=== PATIENT | female | born 1995 | race Two or more races ===

== ENCOUNTER 2020-09-28 23:16 | Emergency (ER) | payer SELFPAY ==
[2020-09-28] MEDS ORDERED: Morphine 4 MG/ML Syringe IVPUSH ONE (23:31)
[2020-09-28] MEDS ORDERED: Lactated Ringers 1,000 ML IV ONE (23:31)
[2020-09-28] MEDS ORDERED: Ondansetron 4 MG/2 ML SDV IVPUSH ONE (23:53)
[2020-09-28] MEDS ORDERED: Ondansetron 4 MG/2 ML SDV ONE (23:54)
[2020-09-29 00:23] LABS: BLOOD UREA NITROGEN,BUN 14 mg/dL (7.0-18.0); CARBON DIOXIDE,CO2 21.5 mmol/L (21.0-32.0); CHLORIDE,CL 101 mmol/L (98-107); GLUCOSE RANDOM 97 mg/dL (74-106); POTASSIUM,K 3.7 mmol/L (3.5-5.1); SODIUM,NA 135 mmol/L (136-145)
[2020-09-29] MEDS ORDERED: Cephalexin 250 MG Cap PO ONE (03:12)
--- NOTE | 2020-09-29 04:24 | US ---
INDICATION: , pain, eval for IUP, LMP 08/09/2020 COMPARISON: None TECHNIQUE: Multiple grayscale sonographic images of the pelvis. Scanning was performed transvaginally. FINDINGS: The uterus measures 0.9 x 4.3 x 6.3 cm. Intrauterine gestational sac is demonstrated with a mean sac diameter of 10 mm and a 4 mm yolk sac. pole measures 2 mm, corresponding to approximate gestational age of 5 weeks, 5 days. heart tones are not appreciated. Small pocket of endometrial free fluid in the lower uterine segment is nonspecific. The right ovary measures 4.4 x 1 1.9 x 3.2 cm and contains a 1.9 cm thick-walled cystic structure consistent with a corpus luteum. The left ovary measures 3.4 x 1.5 x 3.3 cm and appears unremarkable. Intact vascular flow is demonstrated to both ovaries by spectral Doppler. There is no significant pelvic free fluid. IMPRESSION: A single intrauterine with approximate age of 5 weeks, 5 days. heart tones are not demonstrated, presumably due to small size. Correlate with serial serum beta HCG levels and follow-up ultrasound. Dictated by Nahid Phoenix MD @ Sep 29 2020 4:13AM Signed by Dr. Nahid Phoenix @ Sep 29 2020 4:22AM
--- NOTE | 2020-09-29 04:32 | EDM.PDOC ---
ED HPI GENERAL MEDICAL PROBLEM - General Chief Complaint: Flank Pain Stated Complaint: KIDNEY PAIN Time Seen by Provider: 09/28/20 23:17 - History of Present Illness INITIAL COMMENTS - FREE TEXT/NARRATIVE: *All discussions with patient were had with desktop support engineer given patient speaks kyrgyz. CHIEF COMPLAINT(S): Left-sided abdominal pain HISTORY OF PRESENT ILLNESS: This is a 33-year-old woman with a past medical hist ory of nephrolithiasis and polycystic ovarian syndrome who comes to the emergency department with a chief complaint of left-sided abdominal pain. The patient states that starting earlier this evening she started to experience left-sided. She describes the pain as crampy and sharp with radiation to her groin. She describes the pain as 9 out of 10 with associated dysuria. She denies any hematuria, vaginal bleeding or vaginal discharge. She denies any fevers or chills but states that she is mildly nauseous. She denies any vomiting. She has not yet tried anything for pain medication. She does not know what exacerbates the pain. She states that it did start suddenly. She states that it does feel similar to the last time she had kidney stone which was approximately 5 years ago. She states that her last menstrual period was 2 months ago and that her period is not regular secondary to PCOS. She denies any melena or hematochezia. She denies any other symptoms. REVIEW OF SYSTEMS: Constitutional: Denies fever, chills. Eyes: Denies eye pain Ears, Nose, Mouth, & Throat: Denies earache Cardiovascular: Denies chest pain Respiratory: Denies shortness of breath Gastrointestinal: Positive for left-sided abdominal pain, nausea. Denies vomiting, diarrhea, hematochezia, melena, hematemesis, bilious emesis Genitourinary: Positive for dysuria and left flank pain. Denies hematuria, vaginal bleeding, vaginal discharge Skin:Denies a rash MSK: Denies joint pain Neurological: Denies blurred vision, numbness, tingling Psychiatric: Denies depression PAST MEDICAL HISTORY: As per history of present illness and as reviewed below otherwise noncontributory. SURGICAL HISTORY: As per history of present illness and as reviewed below otherwise noncontributory. LMP: 2 months ago, patient has irregular periods SOCIAL HISTORY: As per history of present illness and as reviewed below otherwise noncontributory. FAMILY HISTORY: As per history of present illness and as reviewed below ot herwise noncontributory. EXAMINATION OF ORGAN SYSTEMS/BODY AREAS: Constitutional: Blood pressure is 131/94, heart rate 88, respiratory rate 16 with an oxygen saturation 98% on room air. Temperature 36.5 General: Young woman who appears to be in a moderate amount of pain holding the left side of her abdomen. Psychiatric: Appropriate mood and affect. Eyes: No scleral icterus or conjunctival erythema ENMT: Moist mucous membranes. No pharyngeal erythema Cardiovascular: Regular, rate, and rhythm. No gallops, murmurs, or rubs. Bilateral upper extremity pulses symmetric and intact. No peripheral edema. No JVD. Respiratory: Lungs clear to auscultation bilaterally. No wheezes, rales, or rhonchi. Gastrointestinal: Soft, non-tender, non-distended. Normoactive bowel sounds no rebound or guarding. Genitourinary: There is suprapubic tenderness to palpation and mild left CVA tenderness. No right CVA tenderness Musculoskeletal: Normal range of motion. Skin: No lesions or abrasions. Neurological: Alert, GCS 15 MEDICAL DECISION MAKING AND COURSE IN THE ED WITH INTERPRETATION/REVIEW OF DIAGNOSTIC STUDIES: This is a 33-year-old 1 with a past medical history of PCOS and nephrolithiasis who comes to the emergency department with acute onset left flank pain with radiation to her groin associated with dysuria who has stable vital signs and appears to be in moderate amount of pain. At this time I am concerned about the possibility of nephrolithiasis. Differential does include pyelonephritis or cystitis. Given the patient did not have a period for 2 months we will obtain a [id number] test. We will obtain CBC, BMP, urinalysis, and CT abdomen pelvis without contrast. We will provide the patient with morphine for pain relief The patient was unable to pee therefore we will obtain a serum hCG. Laboratory: CBC is unremarkable. CMP reveals hyponatremia at 135, hypocalcemia at 7.9+ hCG. Given the patient does have a positive hCG I am concerned about the possibility of ectopic versus ruptured ectopic. At this time I did perform a bedside transabdominal ultrasound I discussed with the patient that she is in fact . Bedside transabdominal OB ultrasound Bedside ultrasound reveals gestational sac without any yolk sac without any free fluid. Given I could not confirm intrauterine on bedside we will obtain a formal transvaginal ultrasound. I did discuss with the patient that we were unable to obtain a CT given that the patient is . We will obtain bilateral renal ultrasound to evaluate for hydronephrosis. We will also obtain a quantitative hCG. : Laboratory: Quantitative hCG was elevated at 8498. Urinalysis was a clean catch and was positive for leukocyte esterase, negative for nitrites, and trace for blood. Dirty catch with 3+ bacteria interpretation: Positive Given the patient is I did provide the patient with Keflex by mouth for bacteriuria and suggestion of urinary tract infection. The radiological images were viewed by myself along with reading the report from the radiologist. OB transvaginal ultrasound reveals a intrauterine without any tones at approximately 5 weeks and 5 days. Retroperitoneal ultrasound does not reveal any evidence of hydronephrosis or nephrolithiasis. After imaging the patient reported significant improvement in her pain. At this time I did discuss with her the results of her ultrasounds. I did discuss with her that it could be early and discussed that there was no heart rate on ultrasound. I discussed that she needed a repeat hCG in 2 days and provided her with a prescription to have that completed. I discussed that she need to follow-up with obstetrics within 2 to 3 days for evaluation and plan for repeat ultrasound. She is to return for any new or worsening symptoms. She was amenable to discharge at this time and had no further questions DISPOSITION: The patient was discharged home in stable condition. The patient w ill follow up with obstetrics within 2 to 3 days CONDITION: Fair PROCEDURES: Bedside transabdominal OB ultrasound FINAL IMPRESSION(S)/DIAGNOSES: 1. Acute pelvic pain likely secondary to cystitis 2. Acute new Kurt Velásquez M.D. left flank Pain Score (Numeric/FACES): 9 - Related Data Allergies Allergy/AdvReac Type Severity Reaction Status Date / Time No Known Allergies Allergy Verified 09/28/20 23:29 Home Meds: Home Meds cephALEXin [Keflex] 250 mg PO BID #10 cap 09/29/20 [Rx] Past Medical History - Past Health History Medical/Surgical History: Denies Medical/Surgical History Social & Family History - Tobacco Use Tobacco Use Status *Q: Current Every Day Tobacco User Years of Tobacco use: 10 Packs/Tins Daily: 0 - Recreational Drug Use Recreational Drug Use: No ED ROS GENERAL - Review of Systems Review Of Systems: See Below ED EXAM, GENERAL - Physical Exam Exam: See Below Course - Vital Signs Last Recorded V/S: Last Vital Signs Temp 36.0 C L 09/29/20 04:52 Pulse 64 09/29/20 04:52 Resp 18 09/29/20 04:52 BP 120/86 09/29/20 04:52 Pulse Ox 98 09/29/20 04:52 - Orders/Labs/Meds Orders: Active Orders 24 hr Category Date Time Status CULTURE URINE [RM] Stat Lab 09/29/20 02:31 Received Labs: Laboratory Tests 09/28/20 09/28/20 09/28/20 Range/Units 23:55 23:55 23:55 WBC 10.01 (4.0-11.0) K/uL RBC 4.59 (4.30-5.90) M/uL Hgb 13.3 (12.0-16.0) g/dL Hct 39.8 (36.0-46.0) % MCV 86.7 (80.0-98.0) fL MCH 29.0 (27.0-32.0) pg MCHC 33.4 (31.0-37.0) g/dL RDW Std Deviation 40.0 (28.0-62.0) fl RDW Coeff of Zee 13 (11.0-15.0) % Plt Count 268 (150-400) K/uL MPV 8.90 (7.40-12.00) fL Neut % (Auto) 68.7 (48.0-80.0) % Lymph % (Auto) 22.0 (16.0-40.0) % Whiteside % (Auto) 8.1 (0.0-15.0) % Eos % (Auto) 0.5 (0.0-7.0) % Baso % (Auto) 0.7 (0.0-1.5) % Neut # (Auto) 6.9 H (1.4-5.7) K/uL Lymph # (Auto) 2.2 (0.6-2.4) K/uL Whiteside # (Auto) 0.8 (0.0-0.8) K/uL Eos # (Auto) 0.1 (0.0-0.7) K/uL Baso # (Auto) 0.1 (0.0-0.1) K/uL Nucleated RBC % 0.0 /100WBC Nucleated RBCs # 0 K/uL Sodium 135 L (136-145) mmol/L Potassium 3.7 (3.5-5.1) mmol/L Chloride 101 (98-107) mmol/L Carbon Dioxide 21.5 (21.0-32.0) mmol/L BUN 14 (7.0-18.0) mg/dL Creatinine 0.8 (0.6-1.0) mg/dL Est Cr Clr Drug Dosing 75.87 mL/min Estimated GFR (MDRD) > 60.0 ml/min Glucose 97 (74-106) mg/dL Calcium 7.9 L (8.5-10.1) mg/dL Total Bilirubin 0.4 (0.2-1.0) mg/dL AST 13 L (15-37) IU/L ALT 19 (14-63) IU/L Alkaline Phosphatase 67 (46-116) U/L Total Protein 7.6 (6.4-8.2) g/dL Albumin 3.9 (3.4-5.0) g/dL Globulin 3.7 (2.6-4.0) g/dL Albumin/Globulin Ratio 1.1 (0.9-1.6) HCG, Qual POSITIVE H (NEG) HCG, Quant mIU/mL Urine Color Urine Appearance Urine pH (5.0-8.0) Ur Specific [place] (1.001-1.035) Urine Protein (NEGATIVE) mg/dL Urine Glucose (UA) (NEGATIVE) mg/dL Urine Ketones (NEGATIVE) mg/dL Urine Occult Blood (NEGATIVE) Urine Nitrite (NEGATIVE) Urine Bilirubin (NEGATIVE) Urine Urobilinogen (<2.0) EU/dL Ur Leukocyte Esterase (NEGATIVE) Urine RBC (0-2/HPF) Urine WBC (0-5/HPF) Ur Epithelial Cells (NONE-FEW) Urine Bacteria (NEGATIVE) Urine Mucus (NONE-MOD) 09/28/20 09/29/20 Range/Units 23:55 02:31 WBC (4.0-11.0) K/uL RBC (4.30-5.90) M/uL Hgb (12.0-16.0) g/dL Hct (36.0-46.0) % MCV (80.0-98.0) fL MCH (27.0-32.0) pg MCHC (31.0-37.0) g/dL RDW Std Deviation (28.0-62.0) fl RDW Coeff of Zee (11.0-15.0) % Plt Count (150-400) K/uL MPV (7.40-12.00) fL Neut % (Auto) (48.0-80.0) % Lymph % (Auto) (16.0-40.0) % Whiteside % (Auto) (0.0-15.0) % Eos % (Auto) (0.0-7.0) % Baso % (Auto) (0.0-1.5) % Neut # (Auto) (1.4-5.7) K/uL Lymph # (Auto) (0.6-2.4) K/uL Whiteside # (Auto) (0.0-0.8) K/uL Eos # (Auto) (0.0-0.7) K/uL Baso # (Auto) (0.0-0.1) K/uL Nucleated RBC % /100WBC Nucleated RBCs # K/uL Sodium (136-145) mmol/L Potassium (3.5-5.1) mmol/L Chloride (98-107) mmol/L Carbon Dioxide (21.0-32.0) mmol/L BUN (7.0-18.0) mg/dL Creatinine (0.6-1.0) mg/dL Est Cr Clr Drug Dosing mL/min Estimated GFR (MDRD) ml/min Glucose (74-106) mg/dL Calcium (8.5-10.1) mg/dL Total Bilirubin (0.2-1.0) mg/dL AST (15-37) IU/L ALT (14-63) IU/L Alkaline Phosphatase (46-116) U/L Total Protein (6.4-8.2) g/dL Albumin (3.4-5.0) g/dL Globulin (2.6-4.0) g/dL Albumin/Globulin Ratio (0.9-1.6) HCG, Qual (NEG) HCG, Quant 8498.0 mIU/mL Urine Color YELLOW Urine Appearance CLOUDY Urine pH 6.0 (5.0-8.0) Ur Specific [place] 1.010 (1.001-1.035) Urine Protein NEGATIVE (NEGATIVE) mg/dL Urine Glucose (UA) NEGATIVE (NEGATIVE) mg/dL Urine Ketones NEGATIVE (NEGATIVE) mg/dL Urine Occult Blood TRACE-INTACT H (NEGATIVE) Urine Nitrite NEGATIVE (NEGATIVE) Urine Bilirubin NEGATIVE (NEGATIVE) Urine Urobilinogen 0.2 (<2.0) EU/dL Ur Leukocyte Esterase LARGE H (NEGATIVE) Urine RBC 1-3 (0-2/HPF) Urine WBC TO NUMEROUS TO COUNT H (0-5/HPF) Ur Epithelial Cells MANY (NONE-FEW) Urine Bacteria 3+ H (NEGATIVE) Urine Mucus LIGHT (NONE-MOD) Meds: Medications Discontinued Medications Generic Name Dose Route Start Last Admin Trade Name Freq PRN Reason Stop Dose Admin Cephalexin 250 mg 09/29/20 03:12 09/29/20 04:05 Cephalexin 250 Mg Cap PO 09/29/20 03:13 250 mg ONETIME ONE Administration Lactated Ringer's 1,000 mls @ 999 mls/hr 09/28/20 23:31 09/28/20 23:53 Ringers, Lactated IV 09/29/20 00:31 999 mls/hr .BOLUS ONE Administration Morphine Sulfate 4 mg 09/28/20 23:31 09/28/20 23:50 Morphine 4 Mg/Ml Syringe IVPUSH 09/28/20 23:32 4 mg ONETIME ONE Administration Ondansetron HCl 4 mg 09/28/20 23:53 09/28/20 23:54 Ondansetron 4 Mg/2 Ml Sdv IVPUSH 09/28/20 23:54 4 mg ONETIME ONE Administration Ondansetron HCl Confirm 09/28/20 23:54 09/28/20 23:58 Ondansetron 4 Mg/2 Ml Sdv Administered 09/28/20 23:55 Not Given Dose 4 mg .ROUTE .STK-MED ONE Departure - Departure Time of Disposition: 05:00 Disposition: Home, Self-Care 01 Condition: Fair Clinical Impression: UTI, Urinary tract infectious disease - Discharge Information *PRESCRIPTION DRUG MONITORING PROGRAM REVIEWED*: No *COPY OF PRESCRIPTION DRUG MONITORING REPORT IN PATIENT JIMI: No Prescriptions: cephALEXin [Keflex] 250 mg PO BID #10 cap Instructions: First Trimester of , [id number], Transvaginal Ultrasound, Cephalexin Tablets or Capsules, and Smoking Referrals: PCP,None [Primary Care Provider] - Forms: ED Department Discharge Additional Instructions: [place] fuiste evaluado de forma emergente. En filipe momento le diagnosticaron un embarazo. Aaron se christy comentado, la ecografa le lleva aproximadamente 5 semanas y 5 macias y no hay frecuencia cardaca en la ecografa. [place] podra deberse a que se encuentra en daya etapa temprana del embarazo; sin embargo, es necesario repetir las pruebas de laboratorio en 2 macias y tambin se necesita un seguimiento por ultrasonido con un obstetra. Adems, le diagnosticaron daya infeccin del tracto urinario y le enviaron antibiticos a la farmacia. Complete la dosis completa. Te recomiendo que comiences con daya vitamina . Tommy un seguimiento con el obstetra en 2 macias para repetir la hCG; de lo contrario, regrese al departamento de emergencias para filipe laboratorio. [facility] [address] [place] [id number] [facility] [address] [place] [id number] Se informa al paciente de los resultados de church evaluacin y diagnstico y se responden todas las preguntas. Se les alexia instrucciones de kamar y precauciones de devolucin. El paciente est estable para el kamar. El paciente afirma que entiende y est de acuerdo con el plan y que volver si sunday sntomas empeoran o si tiene alguna inquietud nueva. La siguiente informacin se markos a los pacientes atendidos en el departamento de emergencias que estn siendo dados de kamar a church hogar. Esta informacin es para describir sunday opciones para la atencin de seguimiento. Proporcionamos a todos los pacientes atendidos en nuestro departamento de emergencias daya derivacin de seguimiento. La necesidad de seguimiento, as aaron el momento y las circunstancias, varan segn los detalles de church visita al departamento de emergencias. Si no tiene un mdico de atencin primaria en el personal, le proporcionaremos daya referencia. Siempre le recomendamos que se ponga en contacto con church mdico personal despus de daya visita al servicio de urgencias para informarle de las circunstancias de la visita y para realizar un seguimiento con l y / o la necesidad de cualquier derivacin a un especialista consultor. El departamento de emergencias tambin lo derivar a un especialista cuando sea apropiado. Esta remisin le asegura que tiene la oportunidad de recibir atencin de seguimiento con un especialista. Todas estas medidas se janeth en un esfuerzo por brindarle daya atencin ptima, que incluye church seguimiento. En todas las circunstancias, siempre lo alentamos a que se comunique con church mdico privado, quien sigue siendo un recurso para coordinar church atencin. Cuando llame para recibir atencin de seguimiento, informe al consultorio que filipe seguimiento es de church visita reciente a la abdi de emergencias. Si por alguna razn se le niega el seguimiento, comunquese con el Departamento de Emergencias del [facility] al y solicite hablar con la enfermera a cargo del departamento de emergencias. Sepsis Event Note (ED) - Evaluation Sepsis Screening Result: No Definite Risk - Focused Exam Vital Signs: Vital Signs Temp Pulse Resp BP Pulse Ox 09/29/20 04:52 36.0 C L 64 18 120/86 98 09/29/20 01:02 73 113/80 97 09/29/20 00:47 77 125/89 97 09/29/20 00:32 101 H 133/88 96 09/29/20 00:17 73 129/90 99 09/28/20 23:25 36.5 C 88 16 131/94 H 98 - My Orders Last 24 Hours: My Active Orders 09/29/20 02:31 CULTURE URINE [RM] Stat - Assessment/Plan Last 24 Hours: My Active Orders 09/29/20 02:31 CULTURE URINE [RM] Stat
--- NOTE | 2020-09-29 04:46 | US ---
Indication: Left flank pain Technique: Multiple grayscale and color Doppler sonographic images of the kidneys and urinary bladder. Comparison: None Findings: The right kidney measures 11.2 x 6.0 x 4.6 cm. The left kidney measures 11.0 x 5.9 x 6.5. Both kidneys demonstrate normal cortical thickness and parenchymal echotexture, without suspicious lesion. No stones are seen either kidney. There is no hydronephrosis. Impression: Unremarkable kidneys. No stones or hydronephrosis. Dictated by Nahid Phoenix MD @ Sep 29 2020 4:43AM Signed by Dr. Nahid Phoenix @ Sep 29 2020 4:45AM
== END 2020-09-29 05:00 | disposition home or self-care (01) ==
LOC: MW.ED 23:16
DX: O23.41 Unspecified infection of urinary tract in pregnancy, first trimester (principal); Z72.0 Tobacco use; Z3A.01 Less than 8 weeks gestation of pregnancy
CPT/HCPCS: 36415; 76775; 76817; 80053; 81001; 84702; 84703; 85025; 87086; 96374; 96375; 99284; A9270; J2270; J2405; J7120

== ENCOUNTER 2020-10-13 09:07 | Emergency (ER) | payer SELFPAY ==
--- NOTE | 2020-10-13 09:37 | EDM.PDOC ---
ED HPI GENERAL MEDICAL PROBLEM - General Chief Complaint: [employer] SCOUT Problem Stated Complaint: 7WEEKS BLEEDING AND PAIN Time Seen by Provider: 10/13/20 09:19 Source of Information: Reports: Patient History Limitations: Reports: No Limitations - History of Present Illness INITIAL COMMENTS - FREE TEXT/NARRATIVE: Patient is a 25-year-old English-speaking female who presents today for vaginal bleeding and lower abdominal pain. Patient dates earlier today she started having bleeding was bleeding quite profusely but now is only using 1 pad for the past 2 hours. Patient says she saw some clots passed at home. Patient dates that she is about 7 or 8 weeks had ultrasound today she found she was . Patient denies any trauma fevers chills lightheadedness or weakness. Abdominal Pain Score (Numeric/FACES): 8 - Related Data Allergies Allergy/AdvReac Type Severity Reaction Status Date / Time No Known Allergies Allergy Verified 09/28/20 23:29 Home Meds: Home Meds No122/Iron/Folic Acid [ Multi Tablet] 10/13/20 [History] Past Medical History - Past Health History Medical/Surgical History: Denies Medical/Surgical History - Infectious Disease History Infectious Disease History: Reports: None Social & Family History - Family History Family Medical History: No Pertinent Family History - Caffeine Use Caffeine Use: Reports: None ED ROS GENERAL - Review of Systems Review Of Systems: See Below Constitutional: Reports: No Symptoms HEENT: Reports: No Symptoms Respiratory: Reports: No Symptoms Cardiovascular: Reports: No Symptoms Endocrine: Reports: No Symptoms GI/Abdominal: Reports: No Symptoms : Reports: Other (vaginal bleeding ) Musculoskeletal: Reports: No Symptoms Skin: Reports: No Symptoms Neurological: Reports: No Symptoms Psychiatric: Reports: No Symptoms Hematologic/Lymphatic: Reports: No Symptoms Immunologic: Reports: No Symptoms ED EXAM, GI/ABD - Physical Exam Exam: See Below Exam Limited By: No Limitations General Appearance: Alert, WD/WN Eyes: Bilateral: EOMI Head: Atraumatic, Normocephalic Respiratory/Chest: No Respiratory Distress, Lungs Clear, Normal Breath Sounds Cardiovascular: Normal Peripheral Pulses, Regular Rate, Rhythm, No Edema GI/Abdominal Exam: Normal Bowel Sounds, Soft, Non-Tender (Female) Exam: Normal Speculum Exam, Normal Bimanual Exam. No: Adnexal Mass, Cervical Dilatation Neurological: Alert, Oriented, CN II-XII Intact Course - Vital Signs Last Recorded V/S: Last Vital Signs Temp 97.3 F 10/13/20 09:19 Pulse 75 10/13/20 09:19 Resp BP 121/72 10/13/20 09:19 Pulse Ox 97 10/13/20 09:19 - Orders/Labs/Meds Orders: Active Orders 24 hr Category Date Time Status CHLAMYDIA AND GONORRHEA BY TMA Stat Lab 10/13/20 11:35 Received Labs: Laboratory Tests 10/13/20 10/13/20 10/13/20 Range/Units 10:03 10:03 10:03 WBC 10.97 (4.0-11.0) K/uL RBC 4.56 (4.30-5.90) M/uL Hgb 13.2 (12.0-16.0) g/dL Hct 38.6 (36.0-46.0) % MCV 84.6 (80.0-98.0) fL MCH 28.9 (27.0-32.0) pg MCHC 34.2 (31.0-37.0) g/dL RDW Std Deviation 36.9 (28.0-62.0) fl RDW Coeff of Zee 12 (11.0-15.0) % Plt Count 284 (150-400) K/uL MPV 8.60 (7.40-12.00) fL Neut % (Auto) 74.5 (48.0-80.0) % Lymph % (Auto) 17.7 (16.0-40.0) % Walker % (Auto) 7.2 (0.0-15.0) % Eos % (Auto) 0.2 (0.0-7.0) % Baso % (Auto) 0.4 (0.0-1.5) % Neut # (Auto) 8.2 H (1.4-5.7) K/uL Lymph # (Auto) 1.9 (0.6-2.4) K/uL Walker # (Auto) 0.8 (0.0-0.8) K/uL Eos # (Auto) 0.0 (0.0-0.7) K/uL Baso # (Auto) 0.0 (0.0-0.1) K/uL Sodium 137 (136-145) mmol/L Potassium 3.9 (3.5-5.1) mmol/L Chloride 104 (98-107) mmol/L Carbon Dioxide 24.7 (21.0-32.0) mmol/L BUN 9 (7.0-18.0) mg/dL Creatinine 0.6 (0.6-1.0) mg/dL Est Cr Clr Drug Dosing 101.16 mL/min Estimated GFR (MDRD) > 60.0 ml/min Glucose 98 (74-106) mg/dL Calcium 8.7 (8.5-10.1) mg/dL Total Bilirubin 0.4 (0.2-1.0) mg/dL AST 14 L (15-37) IU/L ALT 22 (14-63) IU/L Alkaline Phosphatase 68 (46-116) U/L Total Protein 7.7 (6.4-8.2) g/dL Albumin 3.8 (3.4-5.0) g/dL Globulin 3.9 (2.6-4.0) g/dL Albumin/Globulin Ratio 1.0 (0.9-1.6) HCG, Quant 85103.0 mIU/mL Urine Color Urine Appearance Urine pH (5.0-8.0) Ur Specific [place] (1.001-1.035) Urine Protein (NEGATIVE) mg/dL Urine Glucose (UA) (NEGATIVE) mg/dL Urine Ketones (NEGATIVE) mg/dL Urine Occult Blood (NEGATIVE) Urine Nitrite (NEGATIVE) Urine Bilirubin (NEGATIVE) Urine Urobilinogen (<2.0) EU/dL Ur Leukocyte Esterase (NEGATIVE) Urine RBC (0-2/HPF) Urine WBC (0-5/HPF) Ur Epithelial Cells (NONE-FEW) Amorphous Sediment (NEGATIVE) Urine Bacteria (NEGATIVE) Urine Mucus (NONE-MOD) Blood Type O POSITIVE 10/13/20 Range/Units 10:05 WBC (4.0-11.0) K/uL RBC (4.30-5.90) M/uL Hgb (12.0-16.0) g/dL Hct (36.0-46.0) % MCV (80.0-98.0) fL MCH (27.0-32.0) pg MCHC (31.0-37.0) g/dL RDW Std Deviation (28.0-62.0) fl RDW Coeff of Zee (11.0-15.0) % Plt Count (150-400) K/uL MPV (7.40-12.00) fL Neut % (Auto) (48.0-80.0) % Lymph % (Auto) (16.0-40.0) % Walker % (Auto) (0.0-15.0) % Eos % (Auto) (0.0-7.0) % Baso % (Auto) (0.0-1.5) % Neut # (Auto) (1.4-5.7) K/uL Lymph # (Auto) (0.6-2.4) K/uL Walker # (Auto) (0.0-0.8) K/uL Eos # (Auto) (0.0-0.7) K/uL Baso # (Auto) (0.0-0.1) K/uL Sodium (136-145) mmol/L Potassium (3.5-5.1) mmol/L Chloride (98-107) mmol/L Carbon Dioxide (21.0-32.0) mmol/L BUN (7.0-18.0) mg/dL Creatinine (0.6-1.0) mg/dL Est Cr Clr Drug Dosing mL/min Estimated GFR (MDRD) ml/min Glucose (74-106) mg/dL Calcium (8.5-10.1) mg/dL Total Bilirubin (0.2-1.0) mg/dL AST (15-37) IU/L ALT (14-63) IU/L Alkaline Phosphatase (46-116) U/L Total Protein (6.4-8.2) g/dL Albumin (3.4-5.0) g/dL Globulin (2.6-4.0) g/dL Albumin/Globulin Ratio (0.9-1.6) HCG, Quant mIU/mL Urine Color RED Urine Appearance CLOUDY Urine pH 7.0 (5.0-8.0) Ur Specific [place] 1.020 (1.001-1.035) Urine Protein 100 H (NEGATIVE) mg/dL Urine Glucose (UA) NEGATIVE (NEGATIVE) mg/dL Urine Ketones NEGATIVE (NEGATIVE) mg/dL Urine Occult Blood LARGE H (NEGATIVE) Urine Nitrite POSITIVE H (NEGATIVE) Urine Bilirubin NEGATIVE (NEGATIVE) Urine Urobilinogen 1.0 (<2.0) EU/dL Ur Leukocyte Esterase TRACE H (NEGATIVE) Urine RBC >100 H (0-2/HPF) Urine WBC 0-2 (0-5/HPF) Ur Epithelial Cells FEW (NONE-FEW) Amorphous Sediment LIGHT (NEGATIVE) Urine Bacteria FEW (NEGATIVE) Urine Mucus LIGHT (NONE-MOD) Blood Type Meds: Medications Discontinued Medications Generic Name Dose Route Start Last Admin Trade Name Bettie PRN Reason Stop Dose Admin Acetaminophen 650 mg 10/13/20 10:26 10/13/20 10:44 Acetaminophen 325 Mg Tab PO 10/13/20 10:27 650 mg NOW ONE Administration - Re-Assessments/Exams Free Text/Narrative Re-Assessment/Exam: 10/13/20 12:34 We used wildlife protector to speak the patient and let her know what was happening. Patient hemoglobin is stable. Patient ultrasound showed a IUP but is too early to show viability. Pelvic ultrasound showed cholelithiasis but with some blood. Patient bleeding has slowed down. Patient vitals have been stable. Patient will be discharged with [employer] follow-up. Departure - Departure Time of Disposition: 12:35 Disposition: Home, Self-Care 01 Condition: Good Clinical Impression: Hemorrhage, , early - Discharge Information *PRESCRIPTION DRUG MONITORING PROGRAM REVIEWED*: Not Applicable *COPY OF PRESCRIPTION DRUG MONITORING REPORT IN PATIENT JIMI: Not Applicable Instructions: Vaginal Bleeding During , First Trimester, [id number] Referrals: PCP,None [Primary Care Provider] - Forms: ED Department Discharge Additional Instructions: The following information is given to patients seen in the emergency department who are being discharged to home. This information is to outline your options for follow-up care. We provide all patients seen in our emergency department with a follow-up referral. The need for follow-up, as well as the timing and circumstances, are variable depending upon the specifics of your emergency department visit. If you don't have a primary care physician on staff, we will provide you with a referral. We always advise you to contact your personal physician following an emergency department visit to inform them of the circumstance of the visit and for follow-up with them and/or the need for any referrals to a consulting specialist. The emergency department will also refer you to a specialist when appropriate. This referral assures that you have the opportunity for follow-up care with a specialist. All of these measure are taken in an effort to provide you with optimal care, which includes your follow-up. Under all circumstances we always encourage you to contact your private physician who remains a resource for coordinating your care. When calling for follow-up care, please make the office aware that this follow-up is from your recent emergency room visit. If for any reason you are refused follow-up, please contact the [facility] Emergency Department at and asked to speak to the emergency department charge nurse. Please follow up with your primary care physician. If you do not have a primary care physician, see below: [facility] [address] [place] [id number] [facility] [address] [place] [id number] You were seen today for vaginal bleeding while . We did labs that showed a stable blood level. Ultrasound showed that the baby is in the right place but is still too early to show if is going to be a viable . We will like for you to monitor your stuff at home if you become weak or lightheaded please return to the ED. If you continue to have heavy bleeding also return to the ED. Please also follow-up with [employer] soon as possible. La atendieron hoy por sangrado vaginal mientras estaba embarazada. Hicimos pruebas de laboratorio que mostraron un nivel en michael estable. La ecografa mostr que el beb est en el lugar correcto, yariel an es demasiado pronto para mostrar si va a ser un embarazo viable. Nos gustara que controle sunday cosas en casa si se siente dbil o aturdido, por favor regrese al servicio de urgencias. Si contina sangrando abundantemente, tambin regrese al servicio de urgencias. Tambin brody un seguimiento con el gineclogo lo antes posible. Sepsis Event Note (ED) - Evaluation Sepsis Screening Result: No Definite Risk - Focused Exam Vital Signs: Vital Signs Temp Pulse BP Pulse Ox 10/13/20 09:19 97.3 F 75 121/72 97 - My Orders Last 24 Hours: My Active Orders 10/13/20 11:35 CHLAMYDIA AND GONORRHEA BY TMA Stat - Assessment/Plan Last 24 Hours: My Active Orders 10/13/20 11:35 CHLAMYDIA AND GONORRHEA BY TMA Stat Plan: Patient is a 25-year-old female who 7 weeks presents today for vaginal bleeding. Will obtain labs ultrasound and pelvic exam.
[2020-10-13] MEDS ORDERED: Acetaminophen 325 MG Tab PO ONE (10:26)
--- NOTE | 2020-10-13 10:40 | US ---
INDICATION: Seven weeks with vaginal bleeding. TECHNIQUE: Ultrasound OB pelvis transabdominal and transvaginal. Real-time del rio-scale imaging of the pelvis was performed. COMPARISON: 09/29/2020 FINDINGS: Sonographic imaging demonstrates a single intrauterine gestation. heart activity is not detected at this time. The embryo`s crown rump length measurement of 0.3 cm corresponds to a gestational age of 5 weeks 6 days with a sonographic due date of June 09, 2021. Yolk sac appears somewhat prominent. There are no gross abnormalities noted within the embryo at this early state of development. The placenta has not yet developed. There is no sign of perigestational hemorrhage. The ovaries are of normal size. There are no suspicious fluid collections noted in the cul-de-sac. IMPRESSION: There is a single intrauterine . Estimated ultrasound age is 5 weeks 6 days. It is too early to determine viability. No abnormality evident. Dictated by Michael Martin MD @ Oct 13 2020 10:30AM Signed by Dr. Michael Martin @ Oct 13 2020 10:37AM
[2020-10-13 11:06] LABS: BLOOD UREA NITROGEN,BUN 9 mg/dL (7.0-18.0); CARBON DIOXIDE,CO2 24.7 mmol/L (21.0-32.0); CHLORIDE,CL 104 mmol/L (98-107); GLUCOSE RANDOM 98 mg/dL (74-106); POTASSIUM,K 3.9 mmol/L (3.5-5.1); SODIUM,NA 137 mmol/L (136-145)
[2020-10-16 15:07] LABS: C.TRACHOMATIS BY TMA Negative (Negative); N.GONORRHOEAE BY TMA Negative (Negative)
== END 2020-10-13 12:50 | disposition home or self-care (01) ==
LOC: MW.ED 09:07
DX: O20.9 Hemorrhage in early pregnancy, unspecified (principal); Z3A.01 Less than 8 weeks gestation of pregnancy
CPT/HCPCS: 36415; 76801; 80053; 81001; 84702; 85025; 86900; 86901; 87491; 87591; 99284; A9270

== ENCOUNTER 2021-07-17 13:09 | Emergency (ER) | payer SELFPAY ==
[2021-07-17] MEDS ORDERED: Acetaminophen 500 MG Tab PO ONE (15:23)
[2021-07-17 16:12] LABS: BLOOD UREA NITROGEN,BUN 4 mg/dL (7.0-18.0); CARBON DIOXIDE,CO2 24.5 mmol/L (21.0-32.0); CHLORIDE,CL 100 mmol/L (98-107); GLUCOSE RANDOM 80 mg/dL (74-106); POTASSIUM,K 3.6 mmol/L (3.5-5.1); SODIUM,NA 135 mmol/L (136-145)
== END 2021-07-17 19:16 | disposition home or self-care (01) ==
LOC: MW.ED 13:09
DX: O98.512 Other viral diseases complicating pregnancy, second trimester (principal); U07.1 COVID-19
CPT/HCPCS: 36415; 80053; 81003; 85025; 87635; 87804; 99283; A9270; U0002

== ENCOUNTER 2022-01-12 13:55 | Inpatient (IN) | payer SELFPAY ==
[2022-01-12] MEDS ORDERED: Carboprost Tromethamine 250 MCG/1 ML Amp IM PRN (16:34)
[2022-01-12] MEDS ORDERED: Sodium Chloride 0.9% 20 ML SDV IV PRN (16:34)
[2022-01-12] MEDS ORDERED: Water For Irrigation,Sterile 1,000 ML Container IRR PRN (16:34)
[2022-01-12] MEDS ORDERED: Tranexamic Acid 1,000 MG in Sodium Chloride 0.9% 100 ML IV PRN (16:34)
[2022-01-12] MEDS ORDERED: Terbutaline 1 MG/ML SDV SUBCUT PRN (16:34)
[2022-01-12] MEDS ORDERED: Ondansetron 4 MG/2 ML SDV IVPUSH PRN (16:34)
[2022-01-12] MEDS ORDERED: Misoprostol 200 MCG Tab PO PRN (16:34)
[2022-01-12] MEDS ORDERED: Lidocaine 1% 50 ML MDV INJECT PRN (16:34)
[2022-01-12] MEDS ORDERED: Sodium Chloride 0.9% 10 ML Syringe FLUSH PRN (16:34)
[2022-01-12] MEDS ORDERED: Butorphanol 1 MG/ML SDV IVPUSH PRN (16:34)
[2022-01-12] MEDS ORDERED: Sodium Chloride 0.9% 2.5 ML Syringe FLUSH PRN (16:34)
[2022-01-12] MEDS ORDERED: Methylergonovine 0.2 MG/1 ML Amp IM PRN (16:34)
[2022-01-12] MEDS ORDERED: Lactated Ringers 1,000 ML IV SCH (16:45)
[2022-01-12] MEDS ORDERED: Oxytocin/0.9 % Sodium Chloride 30 UNIT/500 ML BAG IV SCH ×2 (16:45)
[2022-01-12] MEDS ORDERED: ePHEDrine 50 MG/ML SDV IVPUSH PRN (17:57)
[2022-01-12] MEDS ORDERED: Ropivacaine HCl/PF 400 MG in Premix Bag 1 BAG EPIDUR SCH (18:00)
[2022-01-12] MEDS ORDERED: Witch Hazel Medicated Pads 40/Jar TOP PRN (22:51)
[2022-01-12] MEDS ORDERED: Bisacodyl 10 MG Supp RECTAL PRN (22:51)
[2022-01-12] MEDS ORDERED: Ibuprofen 400 MG Tab PO PRN (22:51)
[2022-01-12] MEDS ORDERED: Docusate Sodium 100 MG Cap PO PRN (22:51)
[2022-01-12] MEDS ORDERED: Lanolin 100% Cream 7 GM Tube TOP PRN (22:51)
[2022-01-12] MEDS ORDERED: oxyCODONE 5 MG Tab PO PRN (22:51)
[2022-01-12] MEDS ORDERED: Acetaminophen 500 MG Tab PO PRN ×2 (22:51)
[2022-01-12] MEDS ORDERED: Benzocaine/Menthol 20%-0.5% Spray 78 GM Cannister TOP PRN (22:51)
[2022-01-13] MEDS: Ibuprofen 800 MG Tab PO PRN ×3 (01:00→16:07)
[2022-01-13] MEDS: Simethicone 80 MG Tab.Chew PO PRN (17:29)
[2022-01-14] MEDS: Simethicone 80 MG Tab.Chew PO PRN (00:37)
[2022-01-14] MEDS: Ibuprofen 800 MG Tab PO PRN (04:05)
== END 2022-01-14 13:40 | disposition home or self-care (01) | DRG 807 ==
LOC: MW.OBCHECK 13:55 → MW.OB 13:57 → MW.OBCHECK 16:33 → MW.OB 16:34 → OBSVTOIN 22:43 → MW.OB 01-13 01:03
PROVIDERS: ADMIT Obstetrics & Gynecology Obstetrics; ATTEND Obstetrics & Gynecology
PROC: 10D07Z6 Extraction of Products of Conception, Vacuum, Via Natural or Artificial Opening (ICD-10-PCS; principal; 2022-01-12)
PROC: 10907ZC Drainage of Amniotic Fluid, Therapeutic from Products of Conception, Via Natural or Artificial Opening (ICD-10-PCS; 2022-01-12)
PROC: 3E0R3BZ Introduction of Anesthetic Agent into Spinal Canal, Percutaneous Approach (ICD-10-PCS; 2022-01-12)
PROC: 00HU33Z Insertion of Infusion Device into Spinal Canal, Percutaneous Approach (ICD-10-PCS; 2022-01-12)
DX: O80 Encounter for full-term uncomplicated delivery (principal); Z37.0 Single live birth; Z3A.38 38 weeks gestation of pregnancy; Z20.822 Contact with and (suspected) exposure to COVID-19
CPT/HCPCS: 36415; 51702; 59025; 59409; 85014; 85018; 85027; 86592; 86850; 86900; 86901; A9270-GY; J2590; J2795; J7120; U0002

== ENCOUNTER 2023-03-22 13:04 | Emergency (ER) | payer SELFPAY ==
[2023-03-22] MEDS ORDERED: Promethazine 25 MG/ML SDV IM ONE (14:13)
[2023-03-22] MEDS ORDERED: Ketorolac 30 MG/ML SDV IM ONE (14:13)
== END 2023-03-22 17:38 | disposition home or self-care (01) ==
LOC: MW.ED 13:04
DX: R51.9 Headache, unspecified (principal); Z86.16 Personal history of COVID-19
CPT/HCPCS: 70450; 96372; 99284; J1885; J2550; 99283

== ENCOUNTER 2024-06-20 21:37 | Emergency (ER) | payer SELFPAY ==
[2024-06-21] MEDS: Ketorolac 30 MG/ML SDV IM ONE (00:28)
== END 2024-06-21 01:06 | disposition home or self-care (01) ==
LOC: MW.ED 21:37
DX: M79.642 Pain in left hand (principal)
CPT/HCPCS: 73110; 96372; 99283; J1885